=== PATIENT | female | born 1985 | race Hispanic/Latino ===

== ENCOUNTER 2017-03-26 12:48 | Observation (INO) | payer MEDICAID ==
[~2017-03-26] VITALS: Ht 157.5 cm; Wt 117.0 kg
[2017-03-26 13:05] VITALS: BP 138/95
[2017-03-26 13:21] LABS: APPEARANCE,URINE Clear (CLEAR); BILIRUBIN,URINE Negative (NEGATIVE); COLOR,URINE Yellow (YELLOW); GLUCOSE, URINE (UA) Negative (NEGATIVE); KETONES,URINE Negative (NEGATIVE); LEUKOCYTE ESTERASE ,URINE Large (NEGATIVE); NITRATE,URINE Negative (NEGATIVE); OCCULT BLOOD,URINE Trace (NEGATIVE); PROTEIN,URINE Negative (NEGATIVE); UROBILINOGEN,URINE 0.2 mg/dL (0.2-1.0)
[2017-03-26 13:31] LABS: BACTERIA,URINE Rare /HPF (None Seen); RBC,URINE 0-1 /HPF (0-1); SQUAMOUS EPITHELIAL CELL,UR Rare /LPF (0-2)
[2017-03-26] MEDS ORDERED: CEFTRIAXONE SODIUM 1 GM IVP SCH (13:45)
[2017-03-26] MEDS ORDERED: LACTATED RINGERS 1000ML 1,000 ML IV SCH (13:45)
[2017-03-26] MEDS ORDERED: CEFTRIAXONE 1GM/D5W 50ML 50 ML IV SCH (13:45)
== END 2017-03-26 14:45 | disposition home or self-care (01) ==
LOC: EDH 12:48 → LDH 12:49
PROVIDERS: ADMIT Obstetrics & Gynecology; ATTEND Obstetrics & Gynecology
DX: O26.853 Spotting complicating pregnancy, third trimester (principal); Z3A.38 38 weeks gestation of pregnancy
CPT/HCPCS: 81001; 87088; 96374; 99285; A4218; G0378 ×2; J0696; J7120; 96360; 96361

== ENCOUNTER 2017-04-06 18:47 | Inpatient (IN) | payer MEDICAID ==
[~2017-04-06] VITALS: Ht 157.5 cm; Wt 115.7 kg
[2017-04-06] MEDS ORDERED: LACTATED RINGERS 1000ML 1,000 ML IV PRN (19:34)
[2017-04-06] MEDS ORDERED: AMPICILLIN 2GM+NS 100ML 100 ML IV SCH (19:45)
[2017-04-06 20:15] LABS: APPEARANCE,URINE Cloudy (CLEAR); BILIRUBIN,URINE Negative (NEGATIVE); COLOR,URINE Yellow (YELLOW); GLUCOSE, URINE (UA) Negative (NEGATIVE); KETONES,URINE Trace mg/dL (NEGATIVE); LEUKOCYTE ESTERASE ,URINE Large (NEGATIVE); NITRATE,URINE Negative (NEGATIVE); OCCULT BLOOD,URINE Moderate (NEGATIVE); PROTEIN,URINE POS 1+ (NEGATIVE); UROBILINOGEN,URINE 0.2 mg/dL (0.2-1.0)
[2017-04-06 20:33] LABS: HEMATOCRIT 32.9 % (36-48); MEAN CORPUSCULAR HEMOGLOBIN 33.3 pg (27.0-33.0); MEAN CORPUSCULAR HGB CONC 35.5 g/dL (32.0-36.0); MEAN CORPUSCULAR VOLUME 93.8 fL (79-99); PLATELET COUNT (AUTO) 215 K/uL (130-400); RED BLOOD CELL COUNT(AUTO) 3.51 MIL/uL (4.00-5.50); RED CELL DISTRIBUTION WIDTH 13.6 % (11.0-15.5); WHITE BLOOD COUNT (AUTO) 11.5 K/uL (4.8-10.8)
[2017-04-06 21:07] LABS: BACTERIA,URINE Few /HPF (None Seen); MUCUS,URINE Rare LPF (None Seen); SQUAMOUS EPITHELIAL CELL,UR Moderate /LPF (0-2)
[2017-04-06 21:18] VITALS: BP 121/66
[2017-04-06] MEDS ORDERED: LACTATED RINGERS 1000ML 1,000 ML IV ONE (21:57)
[2017-04-06] MEDS ORDERED: ACETAMINOPHEN EXTRA STRENGTH 500 MG TABLET ONE (23:23)
[2017-04-07] VITALS (10 sets, daily range): BP systolic 98–126; BP diastolic 54–75
[2017-04-07] MEDS: AMPICILLIN 1GM+NS 50ML 50 ML IV SCH ×5 (00:20→20:00)
[2017-04-07] MEDS ORDERED: LACTATED RINGERS 1000ML 1,000 ML IV ONE (02:19)
[2017-04-07] MEDS ORDERED: OXYTOCIN 10 USP UNITS/ML ONE ×2 (02:19→13:23)
[2017-04-07] MEDS ORDERED: OXYTOCIN 10 USP UNITS/ML 20 UNIT in LACTATED RINGERS 1000ML 1,000 ML IV SCH (03:00)
[2017-04-07] MEDS ORDERED: MEPERIDINE-PF 50 MG/ML SYG IVP SCH (09:26)
[2017-04-07] MEDS ORDERED: PROMETHAZINE HCL 25 MG/ML 1ML AMPULE IM SCH (09:30)
[2017-04-07] MEDS ORDERED: PROMETHAZINE HCL 25 MG/ML 1ML AMPULE IM ONE (09:38)
[2017-04-07] MEDS ORDERED: DIPH,PERTUSS(ACELL),TET VAC/PF 0.5 ML VIAL IM PRN ×2 (10:30→18:30)
[2017-04-07] MEDS ORDERED: WITCH HAZEL 1 PAD TP PRN (10:30)
[2017-04-07] MEDS ORDERED: LANOLIN 30GM OINTMENT TP PRN (10:30)
[2017-04-07] MEDS ORDERED: ACETAMINOPHEN 325 MG TAB PO PRN (10:30)
[2017-04-07] MEDS ORDERED: BENZOCAINE/LANOLIN/ALOE VERA 60 ML AEROSOL TP PRN (10:30)
[2017-04-07] MEDS ORDERED: MEASLES/MUMPS/RUBELLA VACCINE, LIVE 0.5 ML/VIAL SQ PRN (10:30)
[2017-04-07] MEDS: IBUPROFEN 600 MG TABLET PO PRN (16:25)
[2017-04-07] MEDS: DOCUSATE SODIUM 100 MG CAP PO SCH (21:13)
[2017-04-08] MEDS: IBUPROFEN 600 MG TABLET PO PRN ×4 (01:00→23:39)
[2017-04-08 03:31] VITALS: BP 117/71
[2017-04-08 05:36] LABS: HEMATOCRIT 28.7 % (36-48); MEAN CORPUSCULAR HEMOGLOBIN 34.1 pg (27.0-33.0); MEAN CORPUSCULAR HGB CONC 36.2 g/dL (32.0-36.0); MEAN CORPUSCULAR VOLUME 94.3 fL (79-99); PLATELET COUNT (AUTO) 175 K/uL (130-400); RED BLOOD CELL COUNT(AUTO) 3.05 MIL/uL (4.00-5.50); RED CELL DISTRIBUTION WIDTH 13.8 % (11.0-15.5); WHITE BLOOD COUNT (AUTO) 12.9 K/uL (4.8-10.8)
[2017-04-08 07:31] VITALS: BP 132/84
[2017-04-08] MEDS: AMPICILLIN 1GM+NS 50ML 50 ML IV SCH (08:00)
[2017-04-08 08:25] LABS: HEPATITIS Bs ANTIGEN SCREEN P Negative (Negative)
[2017-04-08] MEDS: DOCUSATE SODIUM 100 MG CAP PO SCH ×2 (08:45→21:35)
[2017-04-08 11:45] VITALS: BP 123/72
[2017-04-08 15:30] VITALS: BP 119/75
[2017-04-08 19:12] VITALS: BP 123/85
[2017-04-08 23:08] VITALS: BP 127/85
[2017-04-08] MEDS: ACETAMINOPHEN EXTRA STRENGTH 500 MG TABLET PO SCH ×2 (23:15→23:46)
[2017-04-09 03:27] VITALS: BP 106/59
[2017-04-09 07:28] VITALS: BP 131/85
[2017-04-09] MEDS: DOCUSATE SODIUM 100 MG CAP PO SCH (08:23)
[2017-04-09] MEDS: IBUPROFEN 600 MG TABLET PO PRN (08:24)
[2017-04-09 11:35] VITALS: BP 129/79
== END 2017-04-09 12:35 | disposition home or self-care (01) | DRG 560 ==
LOC: EDSTATUS 19:21 → WSH 19:22 → LDH 04-07 09:40 → WSH 04-07 10:13
PROVIDERS: ADMIT Obstetrics & Gynecology; ATTEND Obstetrics & Gynecology
PROC: 10E0XZZ Delivery of Products of Conception, External Approach (ICD-10-PCS; principal; 2017-04-07)
PROC: 10E0XZZ Delivery of Products of Conception, External Approach (ICD-10-PCS; 2017-04-07)
PROC: 0HQ9XZZ Repair Perineum Skin, External Approach (ICD-10-PCS; 2017-04-07)
PROC: 3E0234Z Introduction of Serum, Toxoid and Vaccine into Muscle, Percutaneous Approach (ICD-10-PCS; 2017-04-07)
PROC: 3E0134Z Introduction of Serum, Toxoid and Vaccine into Subcutaneous Tissue, Percutaneous Approach (ICD-10-PCS; 2017-04-07)
DX: O99.824 Streptococcus B carrier state complicating childbirth (principal); Z23 Encounter for immunization; Z37.0 Single live birth; Z3A.39 39 weeks gestation of pregnancy; O70.0 First degree perineal laceration during delivery
CPT/HCPCS: 36415; 81001; 85027; 86592; 86850; 86900; 86901; 87340; 90707; 90715; A4314; A4606; J0290; J2550; J2590; J7120

== ENCOUNTER 2017-04-24 20:26 | Emergency (ER) | payer MEDICAID | END 2017-04-24 21:50 | disposition home or self-care (01) | LOC: EDH 20:26 | DX: K02.9 Dental caries, unspecified (principal) ==

== ENCOUNTER 2022-11-26 10:57 | Emergency (ER) | payer MEDICAID, OTHER ==
[~2022-11-26] VITALS: Ht 157.5 cm; Wt 118.8 kg
[2022-11-26 11:51] VITALS: BP 147/85; PULSE 78; RESP 18; O2SAT 99
[2022-11-26] MEDS ORDERED: IBUPROFEN 600 MG TABLET PO ONE (12:00)
[2022-11-26] MEDS ORDERED: AMLODIPINE 2.5 MG TAB PO ONE (12:00)
[2022-11-26 12:14] LABS: BASOPHILS # (AUTO) 0.04 K/uL (0.00-0.20); BASOPHILS % (AUTO) 0.4 % (0.0-5.0); EOSINOPHILS # (AUTO) 0.15 K/uL (0.00-0.70); EOSINOPHILS % (AUTO) 1.7 % (0.0-8.0); HEMATOCRIT 40.1 % (36-48); IMMATURE GRANULOCYTE ABSOLUTE 0.04 K/uL (0-1); LYMPHOCYTES # (AUTO) 1.9 K/uL (1.0-4.8); LYMPHOCYTES % (AUTO) 20.6 % (21.0-51.0); MEAN CORPUSCULAR HEMOGLOBIN 30.6 pg (27.0-33.0); MEAN CORPUSCULAR HGB CONC 33.9 g/dL (32.0-36.0); MEAN CORPUSCULAR VOLUME 90.3 fL (79-99); MONOCYTES # (AUTO) 0.5 K/uL (0.1-1.0); MONOCYTES % (AUTO) 5.6 % (3.0-13.0); NEUTROPHILS # (AUTO) 6.5 K/uL (1.8-7.7); NEUTROPHILS % (AUTO) 71.3 % (40.0-77.0); PLATELET COUNT (AUTO) 254 K/uL (130-400); RED BLOOD CELL COUNT(AUTO) 4.44 MIL/uL (4.00-5.50); RED CELL DISTRIBUTION WIDTH 12.4 % (11.0-15.5); WHITE BLOOD COUNT (AUTO) 9.1 K/uL (4.8-10.8)
[2022-11-26 12:26] LABS: CREATININE 0.6 mg/dL (0.5-1.5); POTASSIUM 3.8 mmol/L (3.5-5.1)
[2022-11-26 12:31] LABS: APPEARANCE,URINE CLEAR (CLEAR); BILIRUBIN,URINE NEGATIVE (NEGATIVE); COLOR,URINE COLORLESS (YELLOW); GLUCOSE, URINE (UA) NEGATIVE (NEGATIVE); KETONES,URINE NEGATIVE (NEGATIVE); LEUKOCYTE ESTERASE ,URINE 75 Leu/uL (NEGATIVE); NITRATE,URINE NEGATIVE (NEGATIVE); OCCULT BLOOD,URINE NEGATIVE (NEGATIVE); PH,URINE 5.5 (5.0-8.0); PROTEIN,URINE NEGATIVE (NEGATIVE); UROBILINOGEN,URINE 0.2 mg/dL (0.2-1.0)
[2022-11-26 12:33] LABS: ALBUMIN 3.6 g/dL (3.5-5.0); BILIRUBIN,TOTAL 0.3 mg/dL (0.2-1.0); TOTAL PROTEIN, SERUM 7.3 g/dL (6.0-8.3)
[2022-11-26 12:42] LABS: ADD UA MICROSCOPIC YES
[2022-11-26 13:00] LABS: BACTERIA,URINE RARE /HPF (None Seen); RBC,URINE 0-1 /HPF (0-1); SQUAMOUS EPITHELIAL CELL,UR RARE /HPF (0-2); WBC,URINE 0-1 /HPF (0-1)
[2022-11-26] MEDS ORDERED: CEFD300C3 PO ×2 (13:26→13:51)
[2022-11-26] MEDS ORDERED: CEFTRIAXONE 1G VIAL IVPB ONE (13:30)
== END 2022-11-26 13:55 | disposition home or self-care (01) ==
LOC: EDH 10:57
DX: N39.0 Urinary tract infection, site not specified (principal); J18.9 Pneumonia, unspecified organism
CPT/HCPCS: 99285; 96374; 71045; 84484; 80053; 85025; 87088; 81001; 36415; 93005; J0696